=== PATIENT | male | born 1955 | race Hispanic/Latino ===

== ENCOUNTER 2018-10-15 10:16 | Emergency (ER) | payer MEDICARE ==
[2018-10-15 10:24] VITALS: BP 151/72
[2018-10-15] MEDS ORDERED: IBUPROFEN PO ONE (11:02)
[2018-10-15] MEDS ORDERED: BOOSTRIX IM ONE (11:02)
--- NOTE | 2018-10-15 11:10 | Emergency Department Report ---
ED Laceration HPI - HPI Chief Complaint: Wound/Laceration Stated Complaint: (R) MIDDLE FINGER CUT Time Seen by Provider: 10/15/18 11:02 Occurred When: Yesterday Location: Upper Extremity Severity: mild Tetanus Status: Not up to Date Laceration Symptoms: Yes Pain, No Foreign Body Sensation, No Numbness, No Weakness Other History: This is a 63-year-old male nontoxic, well nourished in appearance, no acute signs of distress presents to the ED with c/o of left middle finger laceration that occurred last night around 5 PM. Patient stated a razor blade causing laceration. Patient denies any decreased sensation or range of motion. Stated he is currently on Plavix. Patient stated bleeding is currently under control. Patient denies any fever, chills, nausea, vomiting, chest pain, shortness of breath, medical or stiff neck. Patient denies any allergies significant past medical history. ED Review of Systems ROS: Stated complaint: (R) MIDDLE FINGER CUT Other details as noted in HPI Constitutional: denies: chills, fever Eyes: denies: eye pain, eye discharge, vision change ENT: denies: ear pain, throat pain Respiratory: denies: cough, shortness of breath, wheezing Cardiovascular: denies: chest pain, palpitations Endocrine: no symptoms reported Gastrointestinal: denies: abdominal pain, nausea, diarrhea Genitourinary: denies: urgency, dysuria Musculoskeletal: denies: back pain, joint swelling, arthralgia Skin: denies: rash, lesions Neurological: denies: headache, weakness, paresthesias Psychiatric: denies: anxiety, depression Hematological/Lymphatic: denies: easy bleeding, easy bruising ED Past Medical Hx - Past Medical History Hx Heart Attack/AMI: Yes Additional medical history: TIA - Surgical History Hx Coronary Stent: Yes Additional Surgical History: Carotid - Social History Smoking Status: Never Smoker Substance Use Type: None - Medications Home Medications: Home Medications Medication Instructions Recorded Confirmed Last Taken Type Sulfamethoxazole/Trimethoprim 1 each PO BID #14 tablet 10/15/18 Unknown Rx [Bactrim DS TAB] traMADol [Ultram 50 MG tab] 50 mg PO Q6HR PRN #12 tablet 10/15/18 Unknown Rx Laceration Physical Exam - Exam General: Vital signs noted. No distress. Alert and acting appropriately. Wound Length (cm): 1 Laceration Location: Upper Extremity Laceration Exam: Yes Normal Distal CMS, No Foreign Body, No Exposed Tendon, Vessel, or Nerve, No Tendon Injury ED Course Vital Signs 10/15/18 10:18 Temperature 97.7 F Pulse Rate 66 Respiratory 18 Rate Blood Pressure 151/72 O2 Sat by Pulse 98 Oximetry - Reevaluation(s) Reevaluation #1: 10/15/18 11:10 Patient is speaking in full sentences with no signs of distress noted. ED Medical Decision Making - Medical Decision Making This is a 63-year-old male that presents with laceration. Patient is stable and was examined by me. Suturing has not been performed due to occurrence happended more then 12-16 hours. Patient does have a dressing and the lac is very superficial. A sterile dressing has been applied. Patient was educated on proper wound care. Patient is discharged with Bactrim and Tradadol and was instructed not to operate any machinery while taking Tramadol due to drowsiness. Patient received a tetanus booster in the ED. Patient was instructed to refer to Follow-up with a primary care doctor in 3-5 days or if symptoms worsen and continue return to emergency room as soon as possible. At time of discharge, the patient does not seem toxic or ill in appearance. No acute signs of distress noted. Patient agrees to discharge treatment plan of care. No further questions noted by the patient. Critical care attestation.: If time is entered above; I have spent that time in minutes in the direct care of this critically ill patient, excluding procedure time. ED Disposition Clinical Impression: Laceration Disposition: [id number] TO HOME OR SELFCARE Is pt being admited?: No Does the pt Need Aspirin: No Condition: Stable Instructions: Tramadol (By mouth), Acute Wound Care (ED) Additional Instructions: Follow-up with a primary care doctor in 3-5 days or if symptoms worsen and continue return to emergency room as soon as possible. Do not operate any machinery while taking Tramadol as this may cause drowsiness. Prescriptions: Sulfamethoxazole/Trimethoprim [Bactrim DS TAB] 1 each PO BID #14 tablet traMADol [Ultram 50 MG tab] 50 mg PO Q6HR PRN #12 tablet PRN Reason: Pain Referrals: PRIMARY CARE, [Referring] - 3-5 Days KAMALA BROWN MD [Staff Physician] - 3-5 Days [facility] [Outside] - 3-5 Days Forms: Work/School Release Form(ED)
== END 2018-10-15 11:53 | disposition home or self-care (01) ==
LOC: ED 10:16
DX: S61.213A Laceration without foreign body of left middle finger without damage to nail, initial encounter (principal); W26.8XXA Contact with other sharp object(s), not elsewhere classified, initial encounter; Y93.89 Activity, other specified; Y99.8 Other external cause status; Y92.89 Other specified places as the place of occurrence of the external cause
CPT/HCPCS: 90471; 90715; 99282

== ENCOUNTER 2021-01-27 11:15 | Emergency (ER) | payer MEDICARE ==
--- NOTE | 2021-01-27 13:24 | Emergency Department Report ---
ED Laceration HPI - HPI Chief Complaint: Laceration/Recheck/Suture Stated Complaint: THUMB LAC LT HAND Time Seen by Provider: 01/27/21 12:48 Location: Upper Extremity Severity: mild Tetanus Status: Up to Date Laceration Symptoms: Yes Pain, No Foreign Body Sensation, No Numbness, No Weakness Other History: This is a 66-year-old male presents to the ED complaining of laceration to the left thumb that happened today while he was working on his bench saw. Patient states his been saw accidentally got caught on his glove and cut through his left thumb ED Review of Systems ROS: Stated complaint: THUMB LAC LT HAND Other details as noted in HPI Comment: All other systems reviewed and negative ED Past Medical Hx - Past Medical History Previous Medical History?: Yes Hx Heart Attack/AMI: Yes Additional medical history: TIA - Surgical History Past Surgical History?: Yes Hx Coronary Stent: Yes Additional Surgical History: Carotid - Social History Smoking Status: Never Smoker Substance Use Type: None - Medications Home Medications: Home Medications Medication Instructions Recorded Confirmed Last Taken Type Sulfamethoxazole/Trimethoprim 1 each PO BID #14 tablet 10/15/18 Unknown Rx [Bactrim DS TAB] traMADoL [Ultram 50 MG tab] 50 mg PO Q6HR PRN #12 tablet 10/15/18 Unknown Rx HYDROcodone/APAP 5-325 [[place] 1 each PO Q6HR PRN #12 tablet 01/27/21 Unknown Rx 5/325] cephALEXin [Keflex] 500 mg PO Q12HR #14 cap 01/27/21 Unknown Rx Laceration Physical Exam - Exam General: Vital signs noted. No distress. Alert and acting appropriately. Wound Length (cm): 1 Laceration Location: Upper Extremity (lt thumb) Laceration Exam: Yes Normal Distal CMS, No Foreign Body, No Exposed Tendon, Vessel, or Nerve, No Tendon Injury ED Course Vital Signs 01/27/21 11:23 Temperature 97.5 F L Pulse Rate 61 Respiratory 16 Rate Blood Pressure 100/52 [Right] O2 Sat by Pulse 97 Oximetry - Laceration /Wound Repair Left Finger Wound Location: upper extremity Wound Length (cm): 1 Wound's Depth, Shape: superficial, irregular Wound Explored: no foreign body removed Irrigated w/ Saline (ccs): 50 Betadine Prep?: Yes Wound Repaired With: Dermabond Number of Sutures: 0 Sterile Dressing Applied?: Yes ED Medical Decision Making - Differential Diagnosis Laceration, abrasion, cellulitis Critical care attestation.: If time is entered above; I have spent that time in minutes in the direct care of this critically ill patient, excluding procedure time. ED Disposition Clinical Impression: Laceration of thumb without complication Disposition: TO HOME OR SELFCARE Is pt being admited?: No Does the pt Need Aspirin: No Condition: Stable Instructions: Sutures, [place], or Adhesive Wound Closure, [id number] Additional Instructions: Make sure to follow up with the primary care physician as discussed. Take all your medications as you've been prescribed. If you have any worsening symptoms or develop new symptoms please return to ED immediately. Prescriptions: cephALEXin [Keflex] 500 mg PO Q12HR #14 cap HYDROcodone/APAP 5-325 [[place] 5/325] 1 each PO Q6HR PRN #12 tablet PRN Reason: Pain Referrals: PRIMARY MD MIMA [Primary Care Provider] - 3-5 Days JC PERKINS MD [Staff Physician] - 3-5 Days Forms: Work/School Release Form(ED) Time of Disposition: 13:50
== END 2021-01-27 14:00 | disposition home or self-care (01) ==
LOC: ED 11:15
CPT/HCPCS: 99281

== ENCOUNTER 2021-12-26 09:00 | Outpatient (CLI) | payer MEDICARE, OTHER ==
[2021-12-26] MEDS ORDERED: FUROSEMIDE 20 MG/2 ML INJ ONE (09:35)
[2021-12-26] MEDS ORDERED: FUROSEMIDE 20 MG/2 ML INJ IV SCH (10:00)
[2021-12-26 10:09] VITALS: BP 118/66
--- NOTE | 2021-12-26 13:22 | Nuclear Medicine Report ---
NUCLEAR MEDICINE RENOGRAM INDICATION / CLINICAL INFORMATION: R10.84 GENERALIZED ABDOMINAL PAIN. TECHNIQUE: Following IV administration of 5.5 mCi [id number], sequential dynamic images of the kidneys were obt ained in the posterior projection. Following IV administration of Lasix, additional images were acqui red. Time activity whole kidney curves were analyzed. COMPARISON: No relevant prior imaging study available. FINDINGS: RENAL CORTICAL ACTIVITY: Homogeneous RENAL SIZE: Left slightly decreased in size with respect to the right DIFFERENTIAL FUNCTION: Right: 66% Left: 34% Right ERPF (ml/min) = 149 Left ERPF (ml/min) = 75 TOTAL ERPF (ml/min) = 224 RIGHT: Lnss-lk-vdec activity: 8 minutes, normal T1/2: 24 minutes, prolonged Ureter: No significantly abnormal activity. Normal caliber. Post-Lasix imaging: No significant abnormality in urinary excretion. LEFT: Eozv-tc-cczh activity: 6 minutes, normal T1/2: 29 minutes, prolonged Ureter: No significantly abnormal activity. Normal caliber. Post-Lasix imaging: No significant abnormality in urinary excretion. Additional Findings: None. IMPRESSION: Prolonged time to half peak noted bilaterally however functional images demonstrate some prominence o f both collecting systems on early and intermediate phase images, but no retained radiotracer identif ied with a ureter on delayed phase imaging to definitely suggest high-grade obstruction. Signer Name: Howard Bailey MD Signed: 12/26/2021 1:17 PM Workstation Name: [email or web address]
== END 2021-12-26 09:01 | disposition home or self-care (01) ==
LOC: NM 09:00
PROVIDERS: ATTEND Urology
DX: R10.84 Generalized abdominal pain (principal)
CPT/HCPCS: 78708; A9562; J1940